=== PATIENT | male | born 1965 | race Caucasian/White ===

== ENCOUNTER → 2021-09-18 | Outpatient (CLI) | payer OTHER ==
[~2021-09-18] MED LIST: METH4TAB PO; SULF1TAB35 PO
--- NOTE | 2021-09-18 15:14 | Diagnostic Imaging Report ---
PROCEDURE: MR imaging abdomen without contrast. TECHNIQUE: Multiplanar, multisequence MR imaging of the abdomen was performed without contrast. INDICATION: Left flank mass. COMPARISON: None available. FINDINGS: Skin marker was placed on the left flank to demarcate the site of palpable concern. At this site, there is no underlying soft tissue mass. There is no encapsulated lipoma in this region. The subcutaneous fat has an appearance similar to that of the contralateral side. Paravertebral musculature is normal. No ascites. Visualized aspects of the liver, spleen, pancreas and kidneys are unremarkable by noncontrast imaging. No adrenal mass. No hydronephrosis. No lymphadenopathy within the visualized portions of the abdomen. IMPRESSION: 1. No abnormality in the left flank at the site of palpable concern. Specifically, there is no encapsulated lipoma. The subcutaneous fat has an appearance that is very similar to the contralateral side. Dictated by: Dictated on workstation # [id number]
== END ==
LOC: RAD 13:15
PROVIDERS: ATTEND Nurse Practitioner Family
DX: R19.09 Other intra-abdominal and pelvic swelling, mass and lump (principal)
CPT/HCPCS: 74181